=== PATIENT | male | born 1950 | race Two or more races ===

== ENCOUNTER 2018-02-03 08:46 | Inpatient (IN) | payer SELFPAY ==
[~2018-02-03] VITALS: Ht 162.6 cm; Wt 75.4 kg
[2018-02-03] MEDS ORDERED: SODIUM CHLORIDE 0.9% 1,000 ML IV ONE (09:26)
[2018-02-03] MEDS ORDERED: MAGNESIUM/ALUMINUM HYDROXIDE/SIMETHICONE 30ML UDC PO ONE (09:30)
[2018-02-03] MEDS ORDERED: DICYCLOMINE 10 MG/5 ML ORAL SYR PO ONE (09:30)
[2018-02-03] MEDS ORDERED: PANTOPRAZOLE SODIUM 40 MG/VIAL IV ONE (09:30)
[2018-02-03 10:36] LABS: BASOPHILS % 0.4 % (0.0-2.0); EOSINOPHILS % 3.9 % (0.0-5.0); HEMATOCRIT. 46.7 % (42.0-52.0); HEMOGLOBIN. 15.6 g/dL (14.0-18.0); MEAN CORPUSCULAR HEMOGLOBIN 29.7 pg (28.0-32.0); MEAN CORPUSCULAR VOLUME 88.9 fL (80.0-94.0); MONOCYTES % 6.8 % (2.0-8.0); NEUTROPHILS % 62.9 % (40.0-76.0); PLATELET 244 x1000/uL (130-400); RED BLOOD CELL COUNT 5.25 mill/uL (4.7-6.1); RED CELL DISTRIBUTION WIDTH 14.2 % (11.6-14.6)
[2018-02-03 10:44] LABS: CHLORIDE 102 mEq/L (98-107)
[2018-02-03] MEDS ORDERED: POTASSIUM CHLORIDE 20MEQ TABLET SR PO ONE (11:00)
[2018-02-03] MEDS ORDERED: MORPHINE SULFATE 2 MG/ML CPJ (NOT FOR IM USE) IV ONE (11:00)
[2018-02-03 11:01] LABS: CLARITY URINE CLEAR (CLEAR); COLOR URINE YELLOW (YELLOW); KETONES URINE NEGATIVE (NEGATIVE); LEUKOCYTE ESTERASE URINE NEGATIVE (NEGATIVE); NITRITE URINE NEGATIVE (NEGATIVE); OCCULT BLOOD URINE NEGATIVE (NEGATIVE); PH URINE 7.5 (4.5-8.0); PROTEIN URINE NEGATIVE (NEGATIVE); UROBILINOGEN URINE 0.2 E.U./dL (0.2-1.0)
[2018-02-03] MEDS ORDERED: HEPARIN SODIUM 1,000 UNIT/1ML VIAL IV ONE ×2 (13:40→14:49)
[2018-02-03] MEDS ORDERED: NITROGLYCERIN 50MCG/ML 10ML VIAL (CATH LAB) IV ONE (14:09)
[2018-02-03] MEDS ORDERED: NICARDIPINE 100MCG/ML 10ML VIAL (CATH LAB) IV ONE (14:09)
[2018-02-03] MEDS ORDERED: ASPIRIN 81MG TABLET PO ONE (14:30)
[2018-02-03] MEDS ORDERED: NITROGLYCERIN 0.4MG TABLET SL SL PRN (14:30)
[2018-02-03 16:00] VITALS: BP 88/51
[2018-02-03 16:30] VITALS: BP 88/72
[2018-02-03] MEDS ORDERED: MAGNESIUM/ALUMINUM HYDROXIDE/SIMETHICONE 30ML UDC PO PRN (18:45)
[2018-02-03] MEDS ORDERED: ONDANSETRON HCL 4MG/2ML VIAL IV PRN (18:45)
[2018-02-03] MEDS ORDERED: IPRATROPIUM/ALBUTEROL 0.5-3(2.5)MG/3ML NEB INH PRN (18:45)
[2018-02-03] MEDS ORDERED: CLONIDINE 0.1MG TABLET PO PRN (18:45)
[2018-02-03] MEDS ORDERED: HYDROMORPHONE HCL/PF 2MG/ML CPJ IV PRN (18:45)
[2018-02-03] MEDS: ACETAMINOPHEN 325MG TABLET PO PRN ×2 (19:04→23:27)
[2018-02-03 20:00] VITALS: BP 120/79
[2018-02-03] MEDS ORDERED: ENOXAPARIN 40MG/0.4ML SYR SUBCUT SCH (21:00)
[2018-02-04] VITALS (12 sets, daily range): BP systolic 109–124; BP diastolic 60–102
[2018-02-04 02:25] LABS: CREATINE KINASE MB FRACTION 275.1 ng/mL (0.5-3.6)
[2018-02-04] MEDS ORDERED: ASPIRIN 81MG EC TABLET PO SCH (09:00)
[2018-02-04] MEDS: SODIUM CHLORIDE 0.45% 1,000 ML IV SCH ×2 (09:05→22:49)
[2018-02-04 09:15] LABS: BASOPHILS % 0.1 % (0.0-2.0); EOSINOPHILS % 0.4 % (0.0-5.0); HEMATOCRIT. 42.7 % (42.0-52.0); HEMOGLOBIN. 14.6 g/dL (14.0-18.0); LYMPHOCYTES % 10.4 % (20.0-50.0); MEAN CORPUSCULAR HEMOGLOBIN 29.9 pg (28.0-32.0); MEAN CORPUSCULAR VOLUME 87.5 fL (80.0-94.0); MEAN PLATELET VOLUME 10.1 fl (7.4-10.4); MONOCYTES % 5.7 % (2.0-8.0); NEUTROPHILS % 83.4 % (40.0-76.0); PLATELET 250 x1000/uL (130-400); RED BLOOD CELL COUNT 4.88 mill/uL (4.7-6.1); RED CELL DISTRIBUTION WIDTH 13.8 % (11.6-14.6)
[2018-02-04 09:25] LABS: CHLORIDE 99 mEq/L (98-107)
[2018-02-04 11:32] LABS: CREATINE KINASE MB FRACTION 419.1 ng/mL (0.5-3.6)
[2018-02-04] MEDS ORDERED: LIDOCAINE HCL 1% 20ML VIAL (Pyxis) INJ ONE (11:37)
[2018-02-04] MEDS ORDERED: IODIXANOL 320MG/ML 100 ML BOTTLE IV ONE ×2 (11:37→12:16)
[2018-02-04] MEDS ORDERED: FENTANYL CITRATE/PF 50MCG/ML 2ML VIAL ONE (11:56)
[2018-02-04] MEDS ORDERED: MIDAZOLAM HCL 2 MG/2 ML VIAL ONE (11:56)
[2018-02-04] MEDS ORDERED: IOHEXOL-300 100 ML BOTTLE ONE (12:08)
[2018-02-04] MEDS ORDERED: ABCIXIMAB 10 MG/5 ML VIAL IV ONE (12:19)
[2018-02-04] MEDS ORDERED: CLOPIDOGREL 75MG TABLET ONE (12:24)
[2018-02-04] MEDS ORDERED: ASPIRIN 325MG TABLET ONE (12:24)
[2018-02-04] MEDS ORDERED: ATROPINE SULFATE 1MG/10ML SYR IV PRN (12:45)
[2018-02-04] MEDS ORDERED: ACETAMINOPHEN 325MG TABLET PO PRN (12:45)
[2018-02-04] MEDS ORDERED: ONDANSETRON HCL 4MG/2ML VIAL IV PRN (12:45)
[2018-02-04 13:42] LABS: *AMPHETAMINES SCREEN URINE NEGATIVE (NEGATIVE); *BARBITURATES SCREEN URINE NEGATIVE (NEGATIVE); *BENZODIAZEPINES SCREEN URINE NEGATIVE (NEGATIVE); *COCAINE SCREEN URINE NEGATIVE (NEGATIVE)
[2018-02-04 13:44] LABS: CANNABINOID URINE SCREEN NEGATIVE (NEGATIVE); METHADONE URINE SCREEN NEGATIVE (NEGATIVE); OPIATES URINE SCREEN NEGATIVE (NEGATIVE); PHENCYCLIDINE URINE SCREEN NEGATIVE (NEGATIVE)
[2018-02-04] MEDS ORDERED: ATORVASTATIN CALCIUM 10MG TABLET PO SCH (21:00)
[2018-02-04] MEDS: ATORVASTATIN CALCIUM 20MG TABLET PO SCH (21:22)
[2018-02-05] VITALS (13 sets, daily range): BP systolic 89–119; BP diastolic 43–77
[2018-02-05 07:45] LABS: CHLORIDE 101 mEq/L (98-107)
[2018-02-05 07:46] LABS: BASOPHILS % 0.1 % (0.0-2.0); EOSINOPHILS % 0.7 % (0.0-5.0); HEMATOCRIT. 40.5 % (42.0-52.0); HEMOGLOBIN. 13.7 g/dL (14.0-18.0); LYMPHOCYTES % 13.1 % (20.0-50.0); MEAN CORPUSCULAR HEMOGLOBIN 29.6 pg (28.0-32.0); MEAN CORPUSCULAR VOLUME 87.2 fL (80.0-94.0); MONOCYTES % 7.9 % (2.0-8.0); NEUTROPHILS % 78.2 % (40.0-76.0); PLATELET 223 x1000/uL (130-400); RED BLOOD CELL COUNT 4.64 mill/uL (4.7-6.1); RED CELL DISTRIBUTION WIDTH 13.9 % (11.6-14.6)
[2018-02-05] MEDS: ASPIRIN 325MG TABLET PO SCH (07:59)
[2018-02-05] MEDS: CLOPIDOGREL 75MG TABLET PO SCH (07:59)
[2018-02-05] MEDS: METOPROLOL TARTRATE 25MG TABLET PO SCH ×2 (09:00→21:38)
[2018-02-05] MEDS: SODIUM CHLORIDE 0.45% 1,000 ML IV SCH ×2 (09:17→21:44)
[2018-02-05] MEDS ORDERED: POTASSIUM CHLORIDE 20MEQ TABLET SR PO NR (16:15)
[2018-02-05] MEDS: ACETAMINOPHEN 325MG TABLET PO PRN (20:26)
[2018-02-05] MEDS: ATORVASTATIN CALCIUM 20MG TABLET PO SCH (21:38)
[2018-02-06] VITALS (12 sets, daily range): BP systolic 94–129; BP diastolic 54–78
[2018-02-06 06:53] LABS: BASOPHILS % 0.2 % (0.0-2.0); EOSINOPHILS % 5.4 % (0.0-5.0); HEMATOCRIT. 40.5 % (42.0-52.0); HEMOGLOBIN. 13.6 g/dL (14.0-18.0); MEAN CORPUSCULAR HEMOGLOBIN 29.6 pg (28.0-32.0); MEAN CORPUSCULAR VOLUME 88.1 fL (80.0-94.0); MEAN PLATELET VOLUME 9.7 fl (7.4-10.4); MONOCYTES % 6.6 % (2.0-8.0); NEUTROPHILS % 76.8 % (40.0-76.0); PLATELET 228 x1000/uL (130-400); RED CELL DISTRIBUTION WIDTH 13.8 % (11.6-14.6)
[2018-02-06 07:25] LABS: CHLORIDE 106 mEq/L (98-107)
[2018-02-06 08:07] LABS: CLARITY URINE CLEAR (CLEAR); COLOR URINE YELLOW (YELLOW); KETONES URINE NEGATIVE (NEGATIVE); LEUKOCYTE ESTERASE URINE NEGATIVE (NEGATIVE); NITRITE URINE NEGATIVE (NEGATIVE); OCCULT BLOOD URINE NEGATIVE (NEGATIVE); PROTEIN URINE NEGATIVE (NEGATIVE); SPECIFIC GRAVITY URINE 1.006 (1.005-1.030)
[2018-02-06] MEDS: CLOPIDOGREL 75MG TABLET PO SCH (08:25)
[2018-02-06] MEDS: ASPIRIN 325MG TABLET PO SCH (08:25)
[2018-02-06] MEDS: LEVOFLOXACIN 500MG PREMIX 100 ML IV SCH (08:26)
[2018-02-06] MEDS: METOPROLOL TARTRATE 25MG TABLET PO SCH ×2 (09:00→21:00)
[2018-02-06] MEDS: SODIUM CHLORIDE 0.45% 1,000 ML IV SCH ×2 (11:41→21:58)
[2018-02-06] MEDS: ATORVASTATIN CALCIUM 20MG TABLET PO SCH (21:57)
[2018-02-07] VITALS (7 sets, daily range): BP systolic 101–120; BP diastolic 52–68
[2018-02-07 06:28] LABS: BASOPHILS % 0.1 % (0.0-2.0); EOSINOPHILS % 10.9 % (0.0-5.0); HEMATOCRIT. 36.9 % (42.0-52.0); HEMOGLOBIN. 12.6 g/dL (14.0-18.0); LYMPHOCYTES % 15.2 % (20.0-50.0); MEAN CORPUSCULAR HEMOGLOBIN 30.1 pg (28.0-32.0); MEAN PLATELET VOLUME 9.8 fl (7.4-10.4); MONOCYTES % 7.5 % (2.0-8.0); NEUTROPHILS % 66.3 % (40.0-76.0); PLATELET 212 x1000/uL (130-400); RED BLOOD CELL COUNT 4.19 mill/uL (4.7-6.1)
[2018-02-07 06:41] LABS: CHLORIDE 106 mEq/L (98-107)
[2018-02-07] MEDS: CLOPIDOGREL 75MG TABLET PO SCH (08:19)
[2018-02-07] MEDS: ASPIRIN 325MG TABLET PO SCH (08:19)
[2018-02-07] MEDS: LEVOFLOXACIN 500MG PREMIX 100 ML IV SCH (08:19)
== END 2018-02-07 11:50 | disposition home or self-care (01) | DRG 174 ==
LOC: ER 09:36 → 5WST 13:50 → ENRESERV 15:40 → 3WST 02-04 12:56
PROVIDERS: ADMIT Internal Medicine Nephrology; ATTEND Internal Medicine Nephrology
PROC: 02703DZ Dilation of Coronary Artery, One Artery with Intraluminal Device, Percutaneous Approach (ICD-10-PCS; principal; 2018-02-04)
PROC: 4A023N7 Measurement of Cardiac Sampling and Pressure, Left Heart, Percutaneous Approach (ICD-10-PCS; 2018-02-04)
PROC: B2111ZZ Fluoroscopy of Multiple Coronary Arteries using Low Osmolar Contrast (ICD-10-PCS; 2018-02-04)
PROC: B2151ZZ Fluoroscopy of Left Heart using Low Osmolar Contrast (ICD-10-PCS; 2018-02-04)
DX: I21.4 Non-ST elevation (NSTEMI) myocardial infarction (principal); I11.9 Hypertensive heart disease without heart failure; E78.00 Pure hypercholesterolemia, unspecified; I25.110 Atherosclerotic heart disease of native coronary artery with unstable angina pectoris; I25.2 Old myocardial infarction; Z95.5 Presence of coronary angioplasty implant and graft
CPT/HCPCS: 36415; 71045; 80048; 80053; 80305; 81003; 82553; 83690; 84484; 85025; 85347; 87040; 87086; 92928; 93005; 93306; 93458; 96361; 96374; 96375; 97163; 99285; C1725; C1769; C1876; C1887; C1893; C9113; J0130; J1644; J1650; J1956; J2250; J2270; J3010; J3490; J7030; Q9967